=== PATIENT | male | born 1985 | race Caucasian/White ===

== ENCOUNTER 2017-01-18 23:16 | Emergency (ER) | payer SELFPAY | END 2017-01-19 01:45 | disposition home or self-care (01) | LOC: ER 23:16 | DX: S02.2XXA Fracture of nasal bones, initial encounter for closed fracture (principal); S90.32XA Contusion of left foot, initial encounter; S63.617A Unspecified sprain of left little finger, initial encounter; V49.40XA Driver injured in collision with unspecified motor vehicles in traffic accident, initial encounter ==